=== PATIENT | female | born 1975 | race Hispanic/Latino ===

== ENCOUNTER 2016-08-23 14:12 | Emergency (ER) | payer OTHER ==
[~2016-08-23] VITALS: Ht 162.6 cm; Wt 108.9 kg
[~2016-08-23 14:12] MED LIST: AMLODIPINE BESY10 M1 PO; AMLODIPINE BESY10 MG PO; AUGMENTIN 875875 MG PO; CIPRO 500MG (E500 MG PO; IBUPROFEN800 MG PO; LISINOPRIL-HCT1 EAC1 PO; PERCOCET 325 MG1 TA2 PO; PRINIVIL 5MG5 MG PO; TRAMADOL50 MG PO; ZANTAC 150MG150 MG PO
--- NOTE | 2016-08-23 16:11 | ED GI/GU/ABDOMINAL COMPLAINT ---
History of Present Illness General Chief Complaint: Abdominal Pain/Flank Pain Stated Complaint: LFT SIDED ABD PAIN Source: patient, old records Exam Limitations: no limitations Vital Signs & Intake/Output Vital Signs & Intake/Output Vital Signs Date Time Temp Pulse Resp B/P Pulse O2 O2 Flow FiO2 Ox Delivery Rate 08/23 1753 99.0 87 16 145/88 96 Room Air 08/23 1629 Room Air 08/23 1425 98.0 79 18 109/67 95 Room Air Allergies Coded Allergies: NO KNOWN ALLERGIES (01/12/16) Reconcile Medications Amlodipine Besylate 10 MG TABLET 1 TAB PO DAILY BP (Reported) Lisinopril/Hydrochlorothiazide (Lisinopril-Hctz 20-25 MG Tab) 1 EACH TABLET 1 TAB PO DAILY BP (Reported) Oxycodone HCl/Acetaminophen (Percocet 5-325 MG Tablet) 5 MG-325 MG TABLET 1 TAB PO BID PRN pain Triage Note: PT STATES SHE IS HAVING PAIN IN HER LEFT LOWER ABD THAT STARTED LAST EVENING AROUND MIDNIGHT. PT DENIES PROBLEMS URINATING. PT LAST BM TODAY. Triage Nurses Notes Reviewed? yes LMP (ages 10-50): 08/12/16 ? N Is pt currently ? No Onset: Abrupt Duration: day(s): (1), constant Timing: recent history Quality/Severity: aching, cramping Severity Numbers: 5 Location: left lower quadrant Radiation: no radiation Activities at Onset: none Prior Abdominal Problems: none No Modifying Factors: none Associated Symptoms: diarrhea HPI: 41-year-old female with history of hypertension prediabetes ovarian cyst presents emergency room complaining of sudden onset left lower quadrant abdominal pain described as crampy in nature since 12:00 last night associated with diarrhea. She denies any fever chills there is no radiation of her pain. Her last menstrual cycle was August 12 and normal she denies any vaginal bleeding or discharge today no urinary symptoms dysuria urgency frequency or hematuria. She denies fever chills no sick contacts with similar symptoms. She is not taken anything for her pain there were no modifying factors or associated symptoms otherwise. Patient denies any back pain there's been no recent injury trauma or heavy lifting. (TIM KIRAN,SALVADOR) Past History Travel History Traveled to [place] past 21 day No Medical History Any Pertinent Medical History? 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 No (SALVADOR LUIS) Review of Systems Review of Systems Constitutional: Reports: see HPI. All Other Systems: Reviewed and Negative Comments Review of systems: See HPI, All other systems negative. Constitutional, no chills no fever, no malaise HEENT: No visual changes no sore throat no congestion Cardiovascular: No chest pain , no palpitation Skin, no jaundice no rashes, no change in skin Respiratory: No dyspnea no cough no sputum GI: No nausea no vomiting, diarrhea, : No dysuria No hematuria Muscle skeletal: No joint pain, no back pain, no neck pain, Neurologic: No numbness, no headache Psych: No stress Heme/endocrine: No bruising no bleeding Immunology: No lymphadenopathy (SALVADOR LUIS) Physical Exam Physical Exam General Appearance: well developed/nourished, alert, awake Gastrointestinal: soft, non-tender Comments: Well-developed well-nourished person in no acute distress HEENT: Normal EENT exam; PERRL, EOMI. HEAD is atraumatic. moist mucous membranes. Neck: Supple, normal range of motion w Back: Nontender, no CVA tenderness. Full range of motion Cardiovascular: Regular rate and rhythms no murmurs rubs Respiratory: No respiratory distress. Patient speaking in full complete sentences. Breath sounds clear to auscultation bilaterally: NO W/R/R Abdomen: Soft, nontender nondistended, no appreciable organomegaly. Normal bowel sounds. No rebound/guarding, Extremity: No edema, full range of motion of extremities Neuro: Alert oriented x3, motor sensory normal. There were no obvious focal neurologic abnormalities. Skin: No appreciable rash on exposed skin, skin is warm and dry. Psych: Mood and affect is normal, memory and judgment is normal. Core Measures ACS in differential dx? No Severe Sepsis Present: No Septic Shock Present: No (SALVADOR LUIS) Progress Differential Diagnosis: ectopic , hernia, inflamm bowel dis, intrauterine , kidney stone, ovarian cyst, ovarian torsion, threatened AB, UTI/pyelo Plan of Care: Orders Procedure Date/time Status COMPREHENSIVE METABOLIC PANEL 08/23 1616 Complete CBC WITHOUT DIFFERENTIAL 08/23 1616 Complete URINE 08/23 143 Complete URINALYSIS 08/23 1432 Complete Laboratory Tests 08/23/16 1627: Anion Gap 11, Estimated GFR > 60, BUN/Creatinine Ratio 13.8, Glucose 95, Calcium 9.3, Total Bilirubin 0.4, AST 27, ALT 43, Alkaline Phosphatase 89, Total Protein 7.5, Albumin 4.1, Globulin 3.4, Albumin/Globulin Ratio 1.2, CBC w Diff NO MAN DIFF REQ, RBC 4.46, MCV 84.7, MCH 28.0, RDW 15.2 H, MPV 9.3, Gran % 74.6, Lymphocytes % 19.7 L, Monocytes % 4.2, Eosinophils % 0.6, Basophils % 0.9, Absolute Granulocytes 9.8 H, Absolute Lymphocytes 2.6, Absolute Monocytes 0.6, Absolute Eosinophils 0.1, Absolute Basophils 0.1, PUBS MCHC 33.0 08/23/16 1435: Urine Color YEL, Urine Clarity CLEAR, Urine pH 7.0, Ur Specific [place] 1.015, Urine Protein NEG, Urine Ketones NEG, Urine Nitrite NEG, Urine Bilirubin NEG, Urine Urobilinogen 0.2, Ur Leukocyte Esterase NEG, Ur Microscopic EXAM NOT REQUIRED, Urine Hemoglobin NEG, Urine Glucose NEG, Urine Test NEGATIVE Labs ordered old records reviewed, ultrasound ordered, case discussed with On repeat evaluation patient is resting comfortably reports improvement in pain I discussed apparently all of her lab results and ultrasound findings. I discussed with her need for close follow-up with her CHEMICAL ETCH OPERATOR Tylenol Motrin as needed prescription for Percocet provided for breakthrough pain, her abdomen remains soft nontender there for discharge (SALVADOR LUIS) Diagnostic Imaging: Viewed by Me: Ultrasound. Discussed w/RAD: Ultrasound. Radiology Impression: PATIENT: JAMILA ELLIOTT PRESENT AGE: 41 PATIENT ACCOUNT NO: [id number] : 76 LOCATION: [facility] ORDERING PHYSICIAN: SALVADOR KIRAN SERVICE DATE: 08/23/16-1617 EXAM TYPE: US - US-TRANSVAGINAL EXAMINATION: ULTRASOUND PELVIS COMPLETE CLINICAL INFORMATION: Left lower quadrant abdominal pain. Evaluate for ovarian torsion. COMPARISON: Pelvic ultrasound 04/07/2014. TECHNIQUE: Real-time sonographic imaging of the uterus and bilateral adnexa via transabdominal and transvaginal approach. FINDINGS: The uterus is anteverted and measures 11.1 x 5.4 x 6.8 cm in sagittal, AP and transverse dimensions respectively, corresponding to a volume of 220 mL. The cervical length is 3.3 cm. The endometrial stripe measures 0.6 cm in thickness. Of note, there is a 1.6 x 1.4 x 2.2 cm intramural fibroid within the right posterolateral segment of the lower uterine body. This fibroid previously measured 1.1 x 1.3 x 1.7 cm. Several small nabothian cysts are identified. The bilateral ovaries are not visualized with any certainty. There is no significant free pelvic fluid. IMPRESSION: The bilateral ovaries are not well seen. Redemonstrated is an intramural fibroid within the lower uterine segment, as described above, slightly increased in size relative to the prior exam. DICTATED BY: AMBER COVARRUBIAS MD DATE/TIME DICTATED:08/23/161733 AIRCRAFT MACHINIST: JUAN DATE/TIME TRANSCRIBED:08/23/161733 CONFIDENTIAL, DO NOT COPY WITHOUT APPROPRIATE AUTHORIZATION. <Electronically signed in Other Vendor System> Initial ED EKG: none (SALVADOR LUIS) Departure Departure Time of Disposition: 1746 Disposition: HOME OR SELF CARE Condition: Stable Clinical Impression Primary Impression: Uterine fibroid Referrals: UNKNOWN (PCP/Family) JANET ROSENBERG MD Additional Instructions: Follow-up with your primary care physician as well as her posting specialist this week ,Tylenol Motrin every 4-6 hours. Percocet for breakthrough pain he's caution as this is a narcotic highly addictive no driving or drinking all call while taking this was sent to your pharmacy bland diet clear liquids advance as tolerated return to emergency room immediately if you had worsening of her symptoms or any other concerns Departure Forms: Customer Survey General Discharge Information Prescriptions: Current Visit Scripts Oxycodone HCl/Acetaminophen (Percocet 5-325 MG Tablet) 1 TAB PO BID PRN pain #8 TAB (SALVADOR LUIS) PA/NUCLEAR WEAPONS SPECIALIST Co-Sign Statement Statement: ED Attending supervision documentation- [] I saw and evaluated the patient. I have also reviewed all the pertinent lab results and diagnostic results. I agree with the findings and the plan of care as documented in the PA's/NUCLEAR WEAP[employer] SPECIALIST's documentation. [X] I have reviewed the ED Record and agree with the PA's/NUCLEAR WEAP[employer] SPECIALIST's documentation. [] Additions or exceptions (if any) to the PAs/NUCLEAR WEAPONS SPECIALIST's note and plan are summarized below: [] (KULWANT BARAHONA,GOMEZ)
[2016-08-23 16:37] LABS: ABSOLUTE BASOPHIL COUNT 0.1 /CUMM (0.0-0.2); ABSOLUTE EOSINOPHIL COUNT 0.1 /CUMM (0.0-0.7); ABSOLUTE GRANULOCYTE CT 9.8 /CUMM (1.4-6.5); ABSOLUTE LYMPH COUNT 2.6 /CUMM (1.2-3.4); ABSOLUTE MONOCYTE COUNT 0.6 /CUMM (0.10-0.60); BASOPHIL % 0.9 % (0.0-2.0); EOSINOPHIL % 0.6 % (0-5); GRANULOCYTE % 74.6 % (42.2-75.2); HEMATOCRIT 37.8 % (37-47); MEAN CORPUSCULAR VOLUME 84.7 FL (81.0-99.0); MEAN PLATELET VOLUME 9.3 FL (7.4-10.4); PLATELET COUNT 303 /CUMM (130-400); RBC DISTRIBUTION WIDTH 15.2 % (11.5-14.5); RED BLOOD CELL CT 4.46 /CUMM (4.20-5.40); WHITE BLOOD CELL COUNT 13.2 /CUMM (4.8-10.8)
--- NOTE | 2016-08-23 17:41 | ULTRASOUND REPORT ---
EXAMINATION: ULTRASOUND PELVIS COMPLETE CLINICAL INFORMATION: Left lower quadrant abdominal pain. Evaluate for ovarian torsion. COMPARISON: Pelvic ultrasound 04/07/2014. TECHNIQUE: Real-time sonographic imaging of the uterus and bilateral adnexa via transabdominal and transvaginal approach. FINDINGS: The uterus is anteverted and measures 11.1 x 5.4 x 6.8 cm in sagittal, AP and transverse dimensions respectively, corresponding to a volume of 220 mL. The cervical length is 3.3 cm. The endometrial stripe measures 0.6 cm in thickness. Of note, there is a 1.6 x 1.4 x 2.2 cm intramural fibroid within the right posterolateral segment of the lower uterine body. This fibroid previously measured 1.1 x 1.3 x 1.7 cm. Several small nabothian cysts are identified. The bilateral ovaries are not visualized with any certainty. There is no significant free pelvic fluid. IMPRESSION: The bilateral ovaries are not well seen. Redemonstrated is an intramural fibroid within the lower uterine segment, as described above, slightly increased in size relative to the prior exam.
[2016-08-23] MEDS ORDERED: PERCOCET 5-3251 EACH PO (17:50)
[2016-08-23 17:53] VITALS: BP 145/88
== END 2016-08-23 17:55 ==
LOC: ERH 14:12
PROVIDERS: Physician Assistant Medical
DX: D25.9 Leiomyoma of uterus, unspecified (principal)
CPT/HCPCS: 81003; 81025